=== PATIENT | female | born 1945 | race Caucasian/White ===

== ENCOUNTER 2025-04-08 06:18 | Day surgery (SDC) | payer OTHER ==
[2025-04-07 12:35] VITALS: BMI 27.4
[2025-04-08] MEDS ORDERED: PROPOFOL 20 ML ONE (07:34)
[2025-04-08] MEDS ORDERED: ONDANSETRON 4 MG/2 ML VIAL IVPUSH PRN (07:40)
[2025-04-08] MEDS ORDERED: SUCCINYLCHOLINE CHLORIDE 200 MG/10 ML SYRINGE ONE (07:52)
[2025-04-08] MEDS ORDERED: ROCURONIUM BROMIDE 50 MG/5 ML SYRINGE ONE (07:52)
[2025-04-08] MEDS ORDERED: SUGAMMADEX SODIUM 200 MG/2 ML VIAL ONE ×2 (08:20→08:22)
[2025-04-08] MEDS: LACTATED RINGERS SOLUTION 1,000 ML IV SCH (10:59)
[2025-04-08] MEDS ORDERED: ACETAMINOPHEN 1000 MG/100 ML BAG IVPB PRN (11:13)
[2025-04-08] MEDS: NICOTINE 14 MG/24 HOURS TOPICAL PATCH TD SCH (14:29)
[2025-04-08 16:08] LABS: MCHC 29.3 g/dl (32.2-35.5); MEAN CELL VOLUME 72.4 fl (79.4-94.8); MEAN PLT VOLUME 10.0 fl (9.4-12.3); RDW 23.3 % (12.4-16.6)
[2025-04-08] MEDS: LACTATED RINGERS SOLUTION 1000 ML INFUS.BAG IV ONE (23:09)
[2025-04-08] MEDS: MELATONIN 5 MG TABLETS PO PRN (23:10)
[2025-04-09] MEDS: LACTATED RINGERS SOLUTION 1000 ML INFUS.BAG IV ONE ×2 (00:40→11:30)
[2025-04-09 08:27] LABS: ABSOLUTE IMMATURE GRANULOCYTES 0.03 x10^3/uL (0.0-0.031); BASOPHILS # 0.02 x10^3/uL (0.01-0.08); EOSINOPHIL % 0.6 % (0.7-5.8); EOSINOPHILS # 0.05 x10^3/uL (0.04-0.36); MCHC 29.5 g/dl (32.2-35.5); MEAN CELL VOLUME 71.5 fl (79.4-94.8); MEAN PLT VOLUME 9.7 fl (9.4-12.3); MONOCYTE # 0.60 x10^3/uL (0.24-0.86); MONOCYTE % 7.6 % (4.7-12.5); RDW 22.9 % (12.4-16.6)
[2025-04-09 09:06] LABS: CO2 27.0 mmol/L (21-32); GLUCOSE,RANDOM 93.0 mg/dL (74-106)
[2025-04-09 09:08] LABS: SGOT/AST 7.0 U/L (15-37); SGPT/ALT 7.0 U/L (13-61); TOT PROT 5.1 g/dl (6.4-8.2)
[2025-04-09 09:10] LABS: ALK PHOS 78.0 U/L (45-117); CREATININE 1.1 mg/dL (0.55-1.3)
[2025-04-09] MEDS ORDERED: ESCITALOPRAM OXALATE 10 MG TABLET ONE (10:17)
[2025-04-09] MEDS ORDERED: ESCITALOPRAM OXALATE 10 MG TABLET PO SCH (10:22)
[2025-04-09] MEDS: ESCITALOPRAM OXALATE 10 MG TABLET PO SCH (10:36)
[2025-04-09] MEDS: ESCITALOPRAM OXALATE 20 MG TABLET PO SCH (10:39)
[2025-04-09 18:57] VITALS: BP 107/50; PULSE 74; RESP 14; TEMP 99.1
== END 2025-04-09 18:30 | disposition home or self-care (01) ==
LOC: JASUSAT 06:18 → SUATTDRO 06:18 → JASU-SURG 06:18 → J6S 11:38 → JASUSAT 04-09 18:30
PROVIDERS: ATTEND Internal Medicine
PROC: 0TBB8ZZ Excision of Bladder, Via Natural or Artificial Opening Endoscopic (ICD-10-PCS; 2025-04-08)
PROC: 0TBB8ZZ Excision of Bladder, Via Natural or Artificial Opening Endoscopic (ICD-10-PCS; principal; 2025-04-08 07:30)
DX: C67.8 Malignant neoplasm of overlapping sites of bladder (principal)
CPT/HCPCS: 36415; 80053; 85025; 94760; C2617